=== PATIENT | female | born 1985 | race Caucasian/White ===

== ENCOUNTER 2019-10-07 11:08 | Outpatient (CLI) | payer SELFPAY ==
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
== END 2019-10-07 11:09 | disposition home or self-care (01) ==
LOC: TBSIIMAG 11:08
PROVIDERS: ATTEND Neurological Surgery
DX: M54.5 Low back pain (principal)
CPT/HCPCS: 72070; 72100